=== PATIENT | male | born 1980 | race Caucasian/White ===

== ENCOUNTER 2020-07-23 19:13 | Emergency (ER) | payer OTHER, SELFPAY ==
[2020-07-23 19:14] VITALS: BP 146/81; PULSE 77; RESP 18; TEMP 36.3; O2SAT 100; BMI 25.1
--- NOTE | 2020-07-23 19:38 | EKG12_ITS ---
Test Reason : CP Blood Pressure : / mmHG Vent. Rate : 070 BPM Atrial Rate : 070 BPM P-R Int : 134 ms QRS Dur : 094 ms QT Int : 394 ms P-R-T Axes : 028 034 038 degrees QTc Int : 425 ms Normal sinus rhythm Normal ECG Confirmed by JULI REAGAN, JO ([id number]), video news editor MIRNA RUBIN ([id number]) on 07/29/2020 7:59:46 AM Referred By: NUHA Confirmed By:ARTURO BUSTOS MD
--- NOTE | 2020-07-23 19:42 | RAD_ITS ---
STUDY: X-RAY CHEST REASON FOR EXAM: Male, 40 years old. PAIN FROM TOP TO BOTTOM OF SPINE FOR LAST FEW DAYS. SOB AT NIGHT AND DIFFICULTY SLEEPING TECHNIQUE: Single frontal view of the chest. COMPARISON: 09/24/2017 FINDINGS: There is no new focal consolidation. Normal size heart. Normal mediastinum and jossue. Normal visualized pulmonary arteries. Normal visualized aortic arch and descending thoracic aorta. Normal visualized thoracic spine. Normal visualized ribs, clavicles, and shoulders. There is no demonstrated abnormality of the visualized soft tissue structures of the upper abdomen. RAD/Chest 1 View (Portable) IMPRESSION: No acute cardiopulmonary process. Electronically Signed: Svetlana Cerrato MD at 20:00 EDT Tel , Service support ,
[2020-07-23 19:47] LABS: Absolute Lymphocyte Count 2.51 X10^3/uL (0.83-4.51); Absolute Neutrophil Count 4.5 X10^3/uL (2.0-7.7); Basophil# 0.05 X10^3/uL; Basophil% 0.6 % (0-1); Eosinophil# 0.74 X10^3/uL; Eosinophils% 8.8 % (0-5); Hematocrit 41.6 % (40-54); Hemoglobin 14.2 g/dL (13.0-16.5); Lymphocyte # 2.51 X10^3/ul (4.0); Lymphocyte % 29.8 % (19-41); Mean Corp Hgb Conc 34.1 g/dL (32-36); Mean Corpuscular Hgb 30.9 pg (27.0-32.0); Mean Corpuscular Volume 90.4 fL (80-94); Monocyte# 0.58 X10^3/uL; Monocyte% 6.9 % (0-10); NRBC Flagged by Analyzer 0 % (0-5); Neutrophil # 4.54 X10^3/uL (2.7-7.7); Neutrophil % 53.8 % (47-70); Platelet Count 213 K/mm3 (150-450); RBC Distribution Width CV 11.9 % (11.6-14.6); RBC Distribution Width SD 39.7 fl (35.1-43.9); White Blood Count 8.4 K/mm3 (4.4-11.0)
[2020-07-23 20:04] LABS: Anion Gap 5 (5-15); BUN 11 mg/dL (7-18); BUN/Creat Ratio 10.7 RATIO (10-20); Calcium,Total 9.1 mg/dL (8.5-10.1); Chloride 111 mmol/L (98-107); Creatinine, Serum 1.03 mg/dL (0.70-1.30); EST Glomerular Filtration Rate 86 mL/min (>60); Est Glom Filt Rate - Afr Amer 104 mL/min (>60); Estimated Creatinine Clearance 97.24 ml/min; Glucose 94 mg/dL (74-106); Potassium 3.3 mmol/L (3.5-5.1); Sodium Level 144 mmol/L (136-145)
--- NOTE | 2020-07-23 20:07 | ED.DCSUM_ITS ---
History of Present Illness Chief Complaint: Chest Pain Informant: Patient Narrative: Patient presents with chest pain and shortness of breath which is been present constantly for the last couple of days. He describes the pain as sternal and nonradiating. He states that he feels rundown and short of breath. He is not had a fever, myalgias, change in taste or smell, nausea vomiting. 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 No history of DVT/PE and no risk factors. Past Medical History - Allergies and Home Meds Allergies/Adverse Reactions: Allergies No Known Allergies Allergy (Verified 05/26/17 09:14) Primary Care Physician: Gil Sanders MD [Primary Care Provider] - Past Medical History: - - Seasonal allergies Lives: Spouse/ Significant Other Smoking Status: Never smoker Alcohol: None Drugs: None Review of Systems General: Denies: Chills, Fever, Malaise Eyes: Denies: Visual changes - bilaterally, Diplopia ENT: Denies: Bilateral ear pain, Rhinorrhea, Sore throat Cardiovascular: Reports: Chest pain. Denies: Palpitations Respiratory: Reports: Dyspnea, Dyspnea on exertion. Denies: Cough Gastrointestinal: Denies: Abdominal pain, Nausea, Vomiting Genitourinary: Denies: Dysuria, Hematuria Musculoskeletal: Denies: Myalgias, Arthralgias Skin: Denies: Rash, Abscess Neurological: Denies: Headache, Weakness Physical Exam Vital Signs/Narrative: Vital Signs Temp Pulse Resp BP Pulse Ox 07/23/20 19:14 97.4 F L 77 18 146/81 H 100 Inital Vital Signs reviewed: Yes General: Well nourished, Well developed Head: Normocephalic, Atraumatic Eyes: Perrl, EOMI ENT: Moist mucous membranes, No rhinorrhea Cardiovascular: Regular rate, Regular rhythm Respiratory: No distress, CTA bilaterally Extremities: Nontender, No edema Skin: Normal color, No rash Neurological: Alert, Oriented x3 Psychological: Normal affect, Normal Mood Diagnostic/Tx/Re-eval Clinical Impression(s) from Imaging Studies Chest X-Ray 07/23/20 19:42 IMPRESSION: No acute cardiopulmonary process. Electronically Signed: Svetlana Cerrato MD at 20:00 EDT Tel , Service support , Laboratory Data 07/23/20 07/23/20 19:35 19:35 WBC 8.4 RBC 4.60 Hgb 14.2 Hct 41.6 MCV 90.4 MCH 30.9 MCHC 34.1 RDW Std Deviation 39.7 RDW Coeff of Tomás 11.9 Plt Count 213 MPV 11.0 Immature Gran % (Auto) 0.100 Neut % (Auto) 53.8 Lymph % (Auto) 29.8 Hardeman % (Auto) 6.9 Eos % (Auto) 8.8 H Baso % (Auto) 0.6 Absolute Neuts (auto) 4.5 Absolute Lymphs (auto) 2.51 Nucleated RBC % 0 Sodium 144 Potassium 3.3 L Chloride 111 H Carbon Dioxide 28.0 Anion Gap 5 BUN 11 Creatinine 1.03 Estim Creat Clear Calc 97.24 Est GFR (MDRD) Af Amer 104 Est GFR (MDRD) Non-Af 86 BUN/Creatinine Ratio 10.7 Glucose 94 Calcium 9.1 Troponin I < 0.015 - Rhythm Strip Rhythm Strip: Sinus Rhythm Rate: 70 - EKG Initial EKG Interpretation: Sinus Rhythm, No Acute Injury Pattern - Medical Decision Making 40-year-old male presenting with constant sternal chest pain for the last 2 days. His EKG is sinus rhythm without signs of ischemic change. Chest x-ray is negative. Lab work is within normal limits. Troponin negative. Patient is PERC negative. All signs are stable and he is afebrile. Given these findings I do not believe this is cardiac in nature and does not need a repeat EKG and troponin. He is low risk for PE. Patient requests prescription for allergy medicine because he believes his seasonal allergies are acting up. This was provided. He is given return precautions. He stable for discharge at this time. Impression: 1. Chest pain 2. Shortness of breath ED Disposition - Plan for ED Patient: Disposition: Home or Assisted Living Instructions: ED Chest Pain Atypical Unkn Cause Prescriptions: Loratadine [Claritin] 10 mg PO DAILY #30 cap Prescription Printed Referrals: Gil Sanders MD [Primary Care Provider] -
[2020-07-23 21:21] VITALS: BP 124/82
== END 2020-07-23 21:23 | disposition home or self-care (01) ==
PROVIDERS: Emergency Provider Student in an Organized Health Care Education/Training Program; PCP Family Medicine
DX: R07.9 Chest pain, unspecified (principal); R06.02 Shortness of breath
CPT/HCPCS: 71045; 80048; 84484; 85025; 93005; 99284; A4216